=== PATIENT | male | born 1990 | race Two or more races ===

== ENCOUNTER 2016-03-26 10:28 | Inpatient (IN) | payer OTHER ==
[2016-03-26 11:21] VITALS: BMI 23.4
--- NOTE | 2016-03-26 13:02 | HP ---
COWS - Scale Resting Pulse: 1= [place] 81-100 Sweatin=Flushed/Facial Moisture Restless Observation: 3= Extraneous Movement Pupil Size: 2= Moderately Dilated Bone or Joint Aches: 2= Severe Diffuse Aches Runny Nose/ Eye Tearin= Runny Nose/Eyes GI Upset > 30mins: 3= Vomiting/Diarrhea Tremor Observation: 2= Slight Tremor Visible Yawning Observation: 2= >3x During Session Anxiety or Irritability: 2=Irritable/Anxious Goose Flesh Skin: 0=Smooth Skin COWS Score: 21 Admission ROS S - HPI Chief Complaint: I am here to stop using percocet Allergies/Adverse Reactions: Allergies Allergy/AdvReac Type Severity Reaction Status Date / Time No Known Allergies Allergy Verified 03/26/16 11:46 History of Present Illness: this 26 years old male with percocet dependence,withdrawal symptom,last detox in [facility] 11/28/15 to 12/03/15 weight loss nicotine dependence longest sobriety 2 months bipolar disorder - Ebola screening Have you traveled outside of the country in the last 21 days: No (N) Have you had contact with anyone from an Ebola affected area: No Have you been sick,other than usual withdrawal symptoms: No Do you have a fever: No - Review of Systems Constitutional: Chills, Diaphoresis, Loss of Appetite, Malaise, Night Sweats, Changes in sleep, Weakness, Unintentional Wgt. Loss EENT: reports: Tearing, Nose Congestion Respiratory: reports: No Symptoms reported Cardiac: reports: No Symptoms Reported GI: reports: Diarrhea, Nausea, Vomiting, Abdominal cramping : reports: No Symptoms Reported Musculoskeletal: reports: Back Pain, Joint Pain, Muscle Pain, Joint Stiffness Integumentary: reports: Dryness Neuro: reports: Headache, Tremors Endocrine: reports: No Symptoms Reported Hematology: reports: No Symptoms Reported Psychiatric: reports: other (bipolar disorder) Patient History - Patient Medical History Hx Anemia: No Hx Asthma: No Hx Chronic Obstructive Pulmonary Disease (COPD): No Hx Cancer: No Hx Cardiac Disorders: No Hx Congestive Heart Failure: No Hx Hypertension: No Hx Hypercholesterolemia: No Hx Pacemaker: No HX Cerebrovascular Accident: No Hx Seizures: No Hx Dementia: No Hx Diabetes: No Hx Gastrointestinal Disorders: No Hx Liver Disease: No Hx Genitourinary Disorders: No Hx Sexually Transmitted Disorders: No Hx Renal Disease (ESRD): No Hx Thyroid Disease: No Hx Human Immunodeficiency Virus (HIV): No (negative LAST 10/07) Hx Hepatitis C: No Hx Depression: Yes (no med) Hx Suicide Attempt: No Hx Bipolar Disorder: Yes Hx Schizophrenia: No Other Medical History: no suicidal,no homicidal - Patient Surgical History Past Surgical History: No Hx Neurologic Surgery: No Hx Cataract Extraction: No Hx Cardiac Surgery: No Hx Lung Surgery: No Hx Breast Surgery: No Hx Breast Biopsy: No Hx Abdominal Surgery: No Hx Appendectomy: No Hx Cholecystectomy: No Hx Genitourinary Surgery: No Hx Section: No Hx Orthopedic Surgery: No Anesthesia Reaction: No - PPD History Previous Implant?: Yes Implanted On Prior [facility] Admission?: Yes Date: 09/24/15 Results: 0 MM PPD to be Administered?: No - Smoking Cessation Smoking history: Current every day smoker Have you smoked in the past 12 months: Yes Aproximately how many cigarettes per day: 5 Hx Chewing Tobacco Use: No Initiated information on smoking cessation: Yes 'Breaking Loose' booklet given: 03/26/16 - Substance & Tx. History Hx Alcohol Use: No Hx Substance Use: Yes Substance Use Type: Opiates Hx Substance Use Treatment: Yes ([facility] 11/28/15 to 12/03/15) - Substances Abused Oxycontin Route: Oral Frequency: Daily Amount used: 1200mg Age of first use: 18 Date of Last Use: 03/25/16 Family Disease History - Family Disease History Family History: Denies Admission Physical Exam BHS - Vital Signs Vital Signs: Vital Signs - 24 hr 03/26/16 11:19 Temperature 98.7 F Pulse Rate 93 H Respiratory 18 Rate Blood Pressure 124/71 - Physical General Appearance: Yes: Moderate Distress, Tremorous, Irritable, Sweating, Anxious HEENTM: Yes: Nasal Congestion, Rhinorrhea Respiratory: Yes: Lungs Clear Neck: Yes: Within Normal Limits Breast: Yes: Within Normal Limits Cardiology: Yes: Within Normal Limits, Regular Rhythm, Regular Rate, S1, S2 Abdominal: Yes: Within Normal Limits, Normal Bowel Sounds, Non Tender, Soft Genitourinary: Yes: Within Normal Limits Back: Yes: Muscle Spasm Musculoskeletal: Yes: Back pain, Muscle Pain Extremities: Yes: Tremors Neurological: Yes: youth ministry director II-XII NML intact, Fully Oriented, Alert, Motor Strength 5/5 Integumentary: Yes: Dry Lymphatic: Yes: Within Normal Limits - Diagnostic (1) Opioid dependence with withdrawal Current Visit: No Status: Acute (2) Bipolar disorder Current Visit: No Status: Chronic (3) Nicotine dependence Current Visit: No Status: Chronic Qualifiers: Nicotine product type: cigarettes Substance use status: uncomplicated Qualified Code(s): F17.210 - Nicotine dependence, cigarettes, uncomplicated (4) Weight loss Current Visit: Yes Status: Acute Cleared for Admission S - Detox or Rehab [facility] Level of Care: Medically Managed Detox Regimen/Protocol: Methadone S Breath Alcohol Content Breath Alcohol Content: 0 Urine Drug Screen - Results Drug Screen Negative: No Urine Drug Screen Results: TCA-Tricyclic Antidepress, OXY-Oxycodone
[2016-03-26] MEDS ORDERED: MENTHOL/PHENOL 1 EACH UD MM PRN (13:13)
[2016-03-26] MEDS ORDERED: chlordiazePOXIDE HCL 25 MG CAPSULE PO PRN (13:13)
[2016-03-26] MEDS ORDERED: ACETAMINOPHEN 325 MG TABLET (FP) PO PRN (13:13)
[2016-03-26] MEDS ORDERED: LOPERAMIDE HCL 2 MG CAPSULE PO PRN (13:13)
[2016-03-26] MEDS ORDERED: MAGNESIUM CITRATE 300 ML BOTTLE PO PRN (13:13)
[2016-03-26] MEDS ORDERED: IBUPROFEN 400 MG TABLET (FP) PO PRN (13:13)
[2016-03-26] MEDS ORDERED: guaiFENesin/D-METHORPHAN HB 10 ML UNIT-DOSE CUPS PO PRN (13:13)
[2016-03-26] MEDS ORDERED: MAGNESIUM HYDROX 2400MG/30ML ORAL SUSPENSION 30 ML CUP PO PRN (13:13)
[2016-03-26] MEDS ORDERED: P-EPHED 60MG/TRIPROLIDI 2.5MG TABLET PO PRN (13:13)
[2016-03-26] MEDS ORDERED: diphenhydrAMINE HCL 50 MG CAPSULE PO PRN (13:13)
[2016-03-26] MEDS ORDERED: CYCLOBENZAPRINE HCL 10 MG TABLET (FP) PO PRN (13:17)
[2016-03-26] MEDS ORDERED: chlordiazePOXIDE HCL 25 MG CAPSULE PO ONE (13:45)
[2016-03-26] MEDS ORDERED: METHADONE HCL 10 MG TABLET (FOR DETOX USE ONLY) PO ONE ×2 (14:45→23:00)
[2016-03-26] MEDS: diazePAM 5 MG TABLET PO PRN ×2 (14:50→20:13)
[2016-03-26] MEDS ORDERED: chlordiazePOXIDE HCL 25 MG CAPSULE PO SCH (17:00)
[2016-03-26] MEDS: hydrOXYzine PAMOATE 50 MG CAPSULE (FP) PO PRN (18:40)
[2016-03-26] MEDS: cloNIDine HCL 0.1 MG TABLET PO SCH (22:12)
[2016-03-26] MEDS: THIAMINE HCL 100 MG TABLET (FP) PO SCH (22:12)
[2016-03-26 22:52] LABS: URINE APPEARANCE CLEAR; URINE BILIRUBIN NEGATIVE (NEGATIVE); URINE COLOR LTYELLOW; URINE GLUCOSE (UA) NEGATIVE (NEGATIVE); URINE KETONE NEGATIVE (NEGATIVE); URINE LEUK ESTERASE NEGATIVE (NEGATIVE); URINE NITRITE NEGATIVE (NEGATIVE); URINE PROTEIN NEGATIVE (NEGATIVE); URINE UROBILINOGEN NEGATIVE E.U./dl (0.2-1.0)
[2016-03-26 22:58] LABS: URINE BLOOD 1+ (NEGATIVE)
[2016-03-26 23:04] LABS: URINE MUCUS RARE; URINE RBC 2 /hpf (0-3); URINE WBC 3 /hpf (3-5)
[2016-03-27] MEDS: diazePAM 5 MG TABLET PO PRN ×4 (05:30→23:51)
[2016-03-27] MEDS ORDERED: METHADONE HCL 10 MG TABLET (FOR DETOX USE ONLY) PO ONE (10:00)
--- NOTE | 2016-03-27 10:02 | PN ---
BHS COWS - Scale Resting Pulse: 0= [place] 80 or Below Sweatin= Chills/Flushing Restless Observation: 3= Extraneous Movement Pupil Size: 1= Pupils >than Normal Bone or Joint Aches: 2= Severe Diffuse Aches Runny Nose/ Eye Tearin= Runny Nose/Eyes GI Upset > 30mins: 2= Nausea/Diarrhea Tremor Observation of Outstretched Hands: 2= Slight Tremor Visible Yawning Observation: 1= 1-2x During Session Anxiety or Irritability: 2=Irritable/Anxious Goose Flesh Skin: 0=Smooth Skin COWS Score: 16 S Progress Note (SOAP) Subjective: ALERT,IRRITABLE,ANXIOUS,PAIN IN THE BODY AND BACK,TREMOR,INTERRUPTED SLEEP Objective: 03/27/16 10:00 Vital Signs Temperature 97.9 F 03/27/16 06:34 Pulse Rate 96 H 03/27/16 06:34 Respiratory Rate 16 03/27/16 06:34 Blood Pressure 98/70 03/27/16 06:34 O2 Sat by Pulse Oximetry (%) EKG NSR WITH SINUS ARRHYTHMIA NORMAL ECG Laboratory Last Values Urine Color Ltyellow 03/26/16 22:40 Urine Appearance Clear 03/26/16 22:40 Urine pH 7.0 (5.0-8.0) 03/26/16 22:40 Ur Specific [place] 1.017 (1.001-1.035) 03/26/16 22:40 Urine Protein Negative (NEGATIVE) 03/26/16 22:40 Urine Glucose (UA) Negative (NEGATIVE) 03/26/16 22:40 Urine Ketones Negative (NEGATIVE) 03/26/16 22:40 Urine Blood 1+ (NEGATIVE) H 03/26/16 22:40 Urine Nitrite Negative (NEGATIVE) 03/26/16 22:40 Urine Bilirubin Negative (NEGATIVE) 03/26/16 22:40 Urine Urobilinogen Negative E.U./dl (0.2-1.0) 03/26/16 22:40 Ur Leukocyte Esterase Negative (NEGATIVE) 03/26/16 22:40 Urine RBC 2 /hpf (0-3) 03/26/16 22:40 Urine WBC 3 /hpf (3-5) 03/26/16 22:40 Urine Mucus Rare 03/26/16 22:40 LABS PENDING Assessment: 03/27/16 10:01 WITHDRAWAL SYMPTOM Plan: CONTINUE DETOX
[2016-03-27] MEDS: cloNIDine HCL 0.1 MG TABLET PO SCH ×2 (10:11→22:12)
[2016-03-27] MEDS: PRENATAL VITAMINS W/ FOLIC ACID TABLET (FP) PO SCH (10:11)
[2016-03-27 11:01] LABS: MCH 29.7 pg (25.7-33.7); MCHC 33.9 g/dl (32.0-35.9); MEAN CELL VOLUME 87.7 fl (80-96); MEAN PLT VOLUME 8.2 fl (7.5-11.1); PLATELET COUNT 278 K/MM3 (134-434); RDW 13.3 % (11.9-15.9); WHITE BLOOD COUNT 5.9 K/mm3 (4.0-10.0)
[2016-03-27 11:34] LABS: ALBUMIN 4.2 g/dl (3.4-5.0); ALK PHOS 71 U/L (45-117); ANION GAP 8 (8-16); BILIRUBIN,TOTAL 0.4 mg/dL (0.2-1.0); CALCIUM 9.1 mg/dL (8.5-10.1); CO2 27 mmol/L (21-32); CREATININE 0.8 mg/dL (0.7-1.3); GLUCOSE,RANDOM 80 mg/dL (74-106); SGOT/AST 10 U/L (15-37); SGPT/ALT 26 U/L (12-78); TOT PROT 7.5 g/dl (6.4-8.2)
[2016-03-27] MEDS: MAG HYDROX/AL HYDROX/SIMETH 30 ML UNIT-DOSE CUP PO PRN (12:07)
--- NOTE | 2016-03-27 15:04 | CONSULT ---
[facility] Psychiatric Consult - Data Date of interview: 03/27/16 Admission source: [facility] Identifying data: This is one of multiple admissions to [facility] for this 26 y/ o male seeking detox treatment on for opiate dependence.Patient is single without children,domiciled,unemployed and supported on odd jobs. Substance Abuse History: - Smoking Cessation. Smoking history: Current every day smoker. Have you smoked in the past 12 months: Yes. Aproximately how many cigarettes per day: 5. Hx Chewing Tobacco Use: No. Initiated information on smoking cessation: Yes. 'Breaking Loose' booklet given: 03/26/16. - Substance & Tx. History. Hx Alcohol Use: No. Hx Substance Use: Yes. Substance Use Type : Opiates. Hx Substance Use Treatment: Yes ([facility] 11/28/15 to 12/03/15). - Substances Abused. Oxycontin. Route: Oral. Frequency: Daily. Amount used : 1200mg. Age of first use: 18. Date of Last Use: 03/25/16 Medical History: Significant for a history of herniated disks and lower back pain. Psychiatric History: History of one psychiatric hospitalization ([facility] in 03/2015 for depression and suicide attempt) in his lifetime.Diagnosed with Bipolar Disorder.Used to be on depakote 750 mg po bid + wellbutrin 75 mg po bid + ambien 10 mg po hs.No longer under the care of private psychiatrist,Dr Morgan of [facility].Mr Simpson declines to resume this regimen in this hospital course." All I want is a medication that helps me sleeps." Physical/Sexual Abuse/Trauma History: Patient denies. Mental Status Exam - Mental Status Exam Alert and Oriented to: Time, Place, Person Cognitive Function: Good Patient Appearance: Well Groomed Mood: Hopeful, Euthymic Affect: Appropriate, Normal Range Patient Behavior: Talkative, Appropriate, Cooperative Speech Pattern: Clear Voice Loudness: Normal Thought Process: Goal Oriented Hallucinations: Denies Suicidal Ideation: Denies Homicidal Ideation: Denies Insight/Judgement: Poor Sleep: Poorly, Difficulty falling asleep Appetite: Good Muscle strength/Tone: Normal Gait/Station: Normal Psychiatric Findings - Problem List ([place] 1, 2,3) (1) Opioid dependence with withdrawal Current Visit: Yes Status: Acute (2) Nicotine dependence Current Visit: Yes Status: Acute Qualifiers: Nicotine product type: cigarettes Substance use status: uncomplicated Qualified Code(s): F17.210 - Nicotine dependence, cigarettes, uncomplicated (3) Drug-induced mood disorder Current Visit: Yes Status: Acute (4) Substance induced mood disorder Current Visit: Yes Status: Acute (5) Bipolar disorder Current Visit: No Status: Chronic Comment: By history. - Initial Treatment Plan Initial Treatment Plan: Psychoeducation.Detoxification.Patient maintains his decision to abstain from psychotropic medications except for zolpidem (only for hospital course).Made aware of risks of refusal of treatment/benefits of medications.Zolpidem 10 mg po hs prn.Informed of risk of parasomnias.Observation.No scripts at discharge.
[2016-03-27] MEDS ORDERED: chlordiazePOXIDE HCL 25 MG CAPSULE PO SCH (17:00)
[2016-03-27] MEDS: ZOLPIDEM TARTRATE 10 MG TABLET (PARK CARE ONLY) PO PRN (22:12)
[2016-03-27] MEDS: THIAMINE HCL 100 MG TABLET (FP) PO SCH (22:12)
[2016-03-28] MEDS: diazePAM 5 MG TABLET PO PRN ×5 (05:51→22:07)
--- NOTE | 2016-03-28 09:30 | PN ---
BHS COWS - Scale Resting Pulse: 1= [place] 81-100 Sweatin=Flushed/Facial Moisture Restless Observation: 3= Extraneous Movement Pupil Size: 1= Pupils >than Normal Bone or Joint Aches: 2= Severe Diffuse Aches Runny Nose/ Eye Tearin= Runny Nose/Eyes GI Upset > 30mins: 2= Nausea/Diarrhea Tremor Observation of Outstretched Hands: 2= Slight Tremor Visible Yawning Observation: 1= 1-2x During Session Anxiety or Irritability: 2=Irritable/Anxious Goose Flesh Skin: 0=Smooth Skin COWS Score: 18 BHS Progress Note (SOAP) Subjective: ALERT,IRRITABLE,ANXIOUS,INTERRUPTED SLEEP,TREMOR,PAIN IN THE BODY AND BACK Objective: 03/28/16 09:29 Vital Signs Temperature 97.8 F 03/28/16 06:37 Pulse Rate 90 03/28/16 06:37 Respiratory Rate 16 03/28/16 06:37 Blood Pressure 94/66 03/28/16 06:37 O2 Sat by Pulse Oximetry (%) Laboratory Last Values WBC 5.9 K/mm3 (4.0-10.0) 03/27/16 06:30 RBC 4.97 M/mm3 (4.00-5.60) 03/27/16 06:30 Hgb 14.8 GM/dL (11.7-16.9) 03/27/16 06:30 Hct 43.6 % (35.4-49) 03/27/16 06:30 MCV 87.7 fl (80-96) 03/27/16 06:30 MCHC 33.9 g/dl (32.0-35.9) 03/27/16 06:30 RDW 13.3 % (11.9-15.9) 03/27/16 06:30 Plt Count 278 K/MM3 (134-434) D 03/27/16 06:30 MPV 8.2 fl (7.5-11.1) 03/27/16 06:30 Sodium 139 mmol/L (136-145) 03/27/16 06:30 Potassium 4.1 mmol/L (3.5-5.1) 03/27/16 06:30 Chloride 104 mmol/L (98-107) 03/27/16 06:30 Carbon Dioxide 27 mmol/L (21-32) 03/27/16 06:30 Anion Gap 8 (8-16) 03/27/16 06:30 BUN 14 mg/dL (7-18) D 03/27/16 06:30 Creatinine 0.8 mg/dL (0.7-1.3) 03/27/16 06:30 Creat Clearance w eGFR > 60 (>60) 03/27/16 06:30 Random Glucose 80 mg/dL (74-106) 03/27/16 06:30 Calcium 9.1 mg/dL (8.5-10.1) 03/27/16 06:30 Total Bilirubin 0.4 mg/dL (0.2-1.0) 03/27/16 06:30 AST 10 U/L (15-37) L D 03/27/16 06:30 ALT 26 U/L (12-78) D 03/27/16 06:30 Alkaline Phosphatase 71 U/L (45-117) 03/27/16 06:30 Total Protein 7.5 g/dl (6.4-8.2) 03/27/16 06:30 Albumin 4.2 g/dl (3.4-5.0) 03/27/16 06:30 Urine Color Ltyellow 03/26/16 22:40 Urine Appearance Clear 03/26/16 22:40 Urine pH 7.0 (5.0-8.0) 03/26/16 22:40 Ur Specific [place] 1.017 (1.001-1.035) 03/26/16 22:40 Urine Protein Negative (NEGATIVE) 03/26/16 22:40 Urine Glucose (UA) Negative (NEGATIVE) 03/26/16 22:40 Urine Ketones Negative (NEGATIVE) 03/26/16 22:40 Urine Blood 1+ (NEGATIVE) H 03/26/16 22:40 Urine Nitrite Negative (NEGATIVE) 03/26/16 22:40 Urine Bilirubin Negative (NEGATIVE) 03/26/16 22:40 Urine Urobilinogen Negative E.U./dl (0.2-1.0) 03/26/16 22:40 Ur Leukocyte Esterase Negative (NEGATIVE) 03/26/16 22:40 Urine RBC 2 /hpf (0-3) 03/26/16 22:40 Urine WBC 3 /hpf (3-5) 03/26/16 22:40 Urine Mucus Rare 03/26/16 22:40 RPR Titer Nonreactive (NONREACTIVE) 03/27/16 06:30 Assessment: 03/28/16 09:30 WITHDRAWAL SYMPTOM Plan: CONTINUE DETOX
[2016-03-28] MEDS ORDERED: METHADONE HCL 5 MG TABLET (FOR DETOX USE ONLY) PO ONE (10:00)
[2016-03-28] MEDS: PRENATAL VITAMINS W/ FOLIC ACID TABLET (FP) PO SCH (10:08)
[2016-03-28] MEDS: cloNIDine HCL 0.1 MG TABLET PO SCH ×2 (10:09→22:06)
[2016-03-28] MEDS: MAG HYDROX/AL HYDROX/SIMETH 30 ML UNIT-DOSE CUP PO PRN ×2 (14:15→22:32)
[2016-03-28] MEDS ORDERED: chlordiazePOXIDE 5 MG CAPSULE PO SCH (17:00)
[2016-03-28] MEDS: THIAMINE HCL 100 MG TABLET (FP) PO SCH (22:06)
[2016-03-28] MEDS: ZOLPIDEM TARTRATE 10 MG TABLET (PARK CARE ONLY) PO PRN (22:08)
[2016-03-29] MEDS: diazePAM 5 MG TABLET PO PRN ×2 (06:05→10:06)
--- NOTE | 2016-03-29 09:24 | PN ---
BHS Progress Note (SOAP) Subjective: ALERT,IRRITABLE,ANXIOUS,PAIN IN THE BODY,HISTORY OF GERD STATED USE TO TAKE NEXIUM Objective: 03/29/16 09:23 Vital Signs Temperature 98.7 F 03/29/16 06:24 Pulse Rate 82 03/29/16 06:24 Respiratory Rate 16 03/29/16 06:24 Blood Pressure 106/68 03/29/16 06:24 O2 Sat by Pulse Oximetry (%) Assessment: 03/29/16 09:23 WITHDRAWAL SYMPTOM Plan: CONTINUE DETOX,PROTONIX 40 MGS PO DAILY
[2016-03-29] MEDS ORDERED: METHADONE HCL 5 MG TABLET (FOR DETOX USE ONLY) PO ONE (10:00)
[2016-03-29] MEDS: cloNIDine HCL 0.1 MG TABLET PO SCH ×2 (10:06→22:14)
[2016-03-29] MEDS: PANTOPRAZOLE 40 MG TABLET (FP) PO SCH (10:06)
[2016-03-29] MEDS: PRENATAL VITAMINS W/ FOLIC ACID TABLET (FP) PO SCH (10:06)
[2016-03-29] MEDS ORDERED: chlordiazePOXIDE HCL 10 MG CAPSULE PO SCH (17:00)
[2016-03-29] MEDS: hydrOXYzine PAMOATE 50 MG CAPSULE (FP) PO PRN (20:48)
[2016-03-29] MEDS: THIAMINE HCL 100 MG TABLET (FP) PO SCH (22:14)
[2016-03-29] MEDS: ZOLPIDEM TARTRATE 10 MG TABLET (PARK CARE ONLY) PO PRN (22:14)
[2016-03-30] MEDS: hydrOXYzine PAMOATE 50 MG CAPSULE (FP) PO PRN ×2 (06:05→20:02)
--- NOTE | 2016-03-30 09:42 | PN ---
BHS Progress Note (SOAP) Subjective: alert,irritable,anxious,interrupted sleep,aching pain Objective: 03/30/16 09:40 Vital Signs Temperature 97.1 F L 03/30/16 09:40 Pulse Rate 85 03/30/16 09:40 Respiratory Rate 18 03/30/16 09:40 Blood Pressure 123/71 03/30/16 09:40 O2 Sat by Pulse Oximetry (%) 03/30/16 09:41 withdrawal symptom Assessment: 03/30/16 09:41 withdrawal symptom Plan: continue detox,discharge in am
[2016-03-30] MEDS ORDERED: METHADONE HCL 10 MG TABLET (FOR DETOX USE ONLY) PO ONE (10:00)
[2016-03-30] MEDS: PRENATAL VITAMINS W/ FOLIC ACID TABLET (FP) PO SCH (10:10)
[2016-03-30] MEDS: PANTOPRAZOLE 40 MG TABLET (FP) PO SCH (10:10)
[2016-03-30] MEDS: cloNIDine HCL 0.1 MG TABLET PO SCH ×2 (10:10→22:09)
[2016-03-30] MEDS: THIAMINE HCL 100 MG TABLET (FP) PO SCH (22:09)
[2016-03-30] MEDS ORDERED: ZOLPIDEM TARTRATE 10 MG TABLET (PARK CARE ONLY) PO ONE (22:45)
[2016-03-31] MEDS ORDERED: METHADONE HCL 5 MG TABLET (FOR DETOX USE ONLY) PO ONE (06:00)
[2016-03-31 06:22] VITALS: BP 102/70; PULSE 91; TEMP 98.5
--- NOTE | 2016-03-31 10:37 | DS ---
[facility] Detox Discharge Summary Admission Date: 03/26/16 Discharge Date: 03/31/16 - History Present History: Opioid Dependence, Sedative Dependence Pertinent Past History: denies - Physical Exam Results Vital Signs: Vital Signs Temperature 98.5 F 03/31/16 06:21 Pulse Rate 91 H 03/31/16 06:21 Respiratory Rate 18 03/31/16 06:21 Blood Pressure 102/70 03/31/16 06:21 O2 Sat by Pulse Oximetry (%) Laboratory Last Values WBC 5.9 K/mm3 (4.0-10.0) 03/27/16 06:30 RBC 4.97 M/mm3 (4.00-5.60) 03/27/16 06:30 Hgb 14.8 GM/dL (11.7-16.9) 03/27/16 06:30 Hct 43.6 % (35.4-49) 03/27/16 06:30 MCV 87.7 fl (80-96) 03/27/16 06:30 MCHC 33.9 g/dl (32.0-35.9) 03/27/16 06:30 RDW 13.3 % (11.9-15.9) 03/27/16 06:30 Plt Count 278 K/MM3 (134-434) D 03/27/16 06:30 MPV 8.2 fl (7.5-11.1) 03/27/16 06:30 Sodium 139 mmol/L (136-145) 03/27/16 06:30 Potassium 4.1 mmol/L (3.5-5.1) 03/27/16 06:30 Chloride 104 mmol/L (98-107) 03/27/16 06:30 Carbon Dioxide 27 mmol/L (21-32) 03/27/16 06:30 Anion Gap 8 (8-16) 03/27/16 06:30 BUN 14 mg/dL (7-18) D 03/27/16 06:30 Creatinine 0.8 mg/dL (0.7-1.3) 03/27/16 06:30 Creat Clearance w eGFR > 60 (>60) 03/27/16 06:30 Random Glucose 80 mg/dL (74-106) 03/27/16 06:30 Calcium 9.1 mg/dL (8.5-10.1) 03/27/16 06:30 Total Bilirubin 0.4 mg/dL (0.2-1.0) 03/27/16 06:30 AST 10 U/L (15-37) L D 03/27/16 06:30 ALT 26 U/L (12-78) D 03/27/16 06:30 Alkaline Phosphatase 71 U/L (45-117) 03/27/16 06:30 Total Protein 7.5 g/dl (6.4-8.2) 03/27/16 06:30 Albumin 4.2 g/dl (3.4-5.0) 03/27/16 06:30 Urine Color Ltyellow 03/26/16 22:40 Urine Appearance Clear 03/26/16 22:40 Urine pH 7.0 (5.0-8.0) 03/26/16 22:40 Ur Specific [place] 1.017 (1.001-1.035) 03/26/16 22:40 Urine Protein Negative (NEGATIVE) 03/26/16 22:40 Urine Glucose (UA) Negative (NEGATIVE) 03/26/16 22:40 Urine Ketones Negative (NEGATIVE) 03/26/16 22:40 Urine Blood 1+ (NEGATIVE) H 03/26/16 22:40 Urine Nitrite Negative (NEGATIVE) 03/26/16 22:40 Urine Bilirubin Negative (NEGATIVE) 03/26/16 22:40 Urine Urobilinogen Negative E.U./dl (0.2-1.0) 03/26/16 22:40 Ur Leukocyte Esterase Negative (NEGATIVE) 03/26/16 22:40 Urine RBC 2 /hpf (0-3) 03/26/16 22:40 Urine WBC 3 /hpf (3-5) 03/26/16 22:40 Urine Mucus Rare 03/26/16 22:40 RPR Titer Nonreactive (NONREACTIVE) 03/27/16 06:30 labs noted Pertinent Admission Physical Exam Findings: withdrawal symptoms - Treatment Hospital Course: Detox Protocol Followed, Detoxed Safely, Responded well, Discharged Condition Good, Rehab Referral Accepted - Medication Discharge Medications: Ambulatory Orders NK [No Known Home Medication] 03/26/16 - Diagnosis (1) Drug-induced mood disorder Status: Acute (2) Nicotine dependence Status: Acute Qualifiers: Nicotine product type: cigarettes Substance use status: uncomplicated Qualified Code(s): F17.210 - Nicotine dependence, cigarettes, uncomplicated (3) Opioid dependence with withdrawal Status: Acute (4) Substance induced mood disorder Status: Acute (5) Uncomplicated sedative, hypnotic, or anxiolytic withdrawal Status: Acute (6) Bipolar disorder Status: Chronic - AMA Did Patient Leave Against Medical Advice: No
== END 2016-03-31 08:58 | disposition home or self-care (01) | DRG 897 ==
LOC: YASAS 10:28 → Y3N 12:16
PROVIDERS: ADMIT Internal Medicine; ATTEND Internal Medicine
PROC: HZ2ZZZZ Detoxification Services for Substance Abuse Treatment (ICD-10-PCS; principal; 2016-03-26)
DX: F11.23 Opioid dependence with withdrawal (principal); L49.9 Exfoliation due to erythematous condition involving 90 or more percent of body surface; F17.210 Nicotine dependence, cigarettes, uncomplicated; F19.24 Other psychoactive substance dependence with psychoactive substance-induced mood disorder; F31.9 Bipolar disorder, unspecified; Z87.898 Personal history of other specified conditions
CPT/HCPCS: 36415; 80053; 81003; 81015; 85027; 86593; 93005; 93010

== ENCOUNTER 2016-12-29 11:45 | Inpatient (IN) | payer OTHER ==
[2016-12-29 12:45] VITALS: BMI 22.1
--- NOTE | 2016-12-29 13:46 | HP ---
COWS - Scale Resting Pulse: 0= [place] 80 or Below Sweatin= Chills/Flushing Restless Observation: 1= Difficult to Sit Still Pupil Size: 0= Normal to Room Light Bone or Joint Aches: 2= Severe Diffuse Aches Runny Nose/ Eye Tearin= Nasal Congestion GI Upset > 30mins: 1= Stomach Cramp Tremor Observation: 1= Tremor [place], Not Seen Yawning Observation: 1= 1-2x During Session Anxiety or Irritability: 1=Feels Anxious/Irritable Goose Flesh Skin: 0=Smooth Skin COWS Score: 9 CIWA Score - CIWA Score Nausea/Vomitin-Mild Nausea/No Vomiting Muscle Tremors: 4-Moderate,w/Arms Extend Anxiety: 4-Mod. Anxious/Guarded Agitation: 1-Slight > Activity Paroxysmal Sweats: 1-Minimal Palms Moist Orientation: 0-Oriented Tacttile Disturbances: 1-Very Mild Itch/Numbness Auditory Disturbances: 1-Very Mild Visual Disturbances: 1-Very Mild Sensitivity Headache: 1-Very Mild CIWA-Ar Total Score: 15 Admission ROS S - HPI Chief Complaint: I need to work and I have to stop using - I have a real problem Allergies/Adverse Reactions: Allergies Allergy/AdvReac Type Severity Reaction Status Date / Time No Known Allergies Allergy Verified 12/29/16 15:00 History of Present Illness: 26 yo gentleman here for detox from percocet, alcohol. No seizures. Previously here in detox in March - did well about 2 months then relapsed. Noted YOON was getting percocet for pain management - states it was for workman's compensation. Exam Limitations: Clinical Condition - Ebola screening Have you traveled outside of the country in the last 21 days: No Have you had contact with anyone from an Ebola affected area: No Have you been sick,other than usual withdrawal symptoms: No Do you have a fever: No - Review of Systems Constitutional: Loss of Appetite, Malaise, Changes in sleep, Weakness EENT: reports: Nose Congestion Respiratory: reports: No Symptoms reported Cardiac: reports: No Symptoms Reported GI: reports: Nausea, Poor Appetite : reports: No Symptoms Reported Musculoskeletal: reports: Back Pain, Muscle Pain Integumentary: reports: No Symptoms Reported Neuro: reports: Headache Endocrine: reports: No Symptoms Reported Hematology: reports: No Symptoms Reported Psychiatric: reports: Judgement Intact, Mood/Affect Appropiate, Orientated x3, Anxious Other Systems: Reviewed and Negative Patient History - Patient Medical History Hx Anemia: No Hx Asthma: No Hx Chronic Obstructive Pulmonary Disease (COPD): No Hx Cancer: No Hx Cardiac Disorders: No Hx Congestive Heart Failure: No Hx Hypertension: No Hx Hypercholesterolemia: No Hx Pacemaker: No HX Cerebrovascular Accident: No Hx Seizures: No Hx Dementia: No Hx Diabetes: No Hx Gastrointestinal Disorders: No Hx Liver Disease: No Hx Genitourinary Disorders: No Hx Sexually Transmitted Disorders: No Hx Renal Disease (ESRD): No Hx Thyroid Disease: No Hx Human Immunodeficiency Virus (HIV): No (negative LAST 10/07) Hx Hepatitis C: No Hx Depression: Yes (no med) Hx Suicide Attempt: No Hx Bipolar Disorder: Yes Hx Schizophrenia: No - Patient Surgical History Past Surgical History: No Hx Neurologic Surgery: No Hx Cataract Extraction: No Hx Cardiac Surgery: No Hx Lung Surgery: No Hx Breast Surgery: No Hx Breast Biopsy: No Hx Abdominal Surgery: No Hx Appendectomy: No Hx Cholecystectomy: No Hx Genitourinary Surgery: No Hx Section: No Hx Orthopedic Surgery: No Anesthesia Reaction: No - PPD History Previous Implant?: Yes Documented Results: Positive w/proof Date: 09/24/15 Results: 0 MM PPD to be Administered?: Yes - Reproductive History Patient is a Female of Child Bearing Age (11 -55 yrs old): No (male) - Smoking Cessation Smoking history: Current every day smoker Have you smoked in the past 12 months: Yes Aproximately how many cigarettes per day: 5 Hx Chewing Tobacco Use: No Initiated information on smoking cessation: Yes 'Breaking Loose' booklet given: 12/29/16 (give on floor) - Substance & Tx. History Hx Alcohol Use: Yes Hx Substance Use: Yes Substance Use Type: Alcohol, Opiates Hx Substance Use Treatment: Yes (detox) - Substances Abused Alcohol Route: Oral Frequency: Daily Amount used: two six packs 16 oz beer Age of first use: 18 Date of Last Use: 12/28/16 percocet Route: Oral Frequency: Daily Amount used: thirty pills twice daily Age of first use: 19 Date of Last Use: 12/28/16 Benzodiazepine (Klonopin) Route: Oral Frequency: 1-2 times per week Amount used: 1mg Age of first use: 25 Date of Last Use: 12/28/16 Marijuana/Hashish Route: Smoking Frequency: 1-3 times last 30 days Amount used: 1 joint Age of first use: 16 Date of Last Use: 12/28/16 Family Disease History - Family Disease History Family Disease History: Other: Father (living - healthy -etoh), Mother (living - healthy), Brother (one - [place]; four living - healthy), Sister (two living- healthy) Admission Physical Exam [facility] - Vital Signs Vital Signs: Vital Signs - 24 hr 12/29/16 12:44 Temperature 96.4 F L Pulse Rate 76 Respiratory 20 Rate Blood Pressure 104/68 - Physical General Appearance: Yes: Nourished, Appropriately Dressed, Mild Distress HEENTM: Yes: Hearing grossly Normal, Normocephalic, Normal Voice, Pharynx Normal Respiratory: Yes: Normal Breath Sounds, No Respiratory Distress Neck: Yes: No masses,lesions,Nodules Breast: Yes: Breast Exam Deferred Cardiology: Yes: Regular Rhythm, Regular Rate Abdominal: Yes: Soft Genitourinary: Yes: Within Normal Limits Back: Yes: Normal Inspection Musculoskeletal: Yes: full range of Motion, Gait Steady Extremities: Yes: Normal Inspection, Non-Tender Neurological: Yes: Fully Oriented, Alert, Normal Mood/Affect, Normal Response Integumentary: Yes: Normal Color, Warm Lymphatic: Yes: Within Normal Limits - Diagnostic (1) Opioid dependence with withdrawal Current Visit: Yes Status: Chronic (2) EtOH dependence Current Visit: Yes Status: Chronic Qualifiers: Substance use status: in withdrawal Complication of substance-induced condition: uncomplicated Qualified Code(s): F10.230 - Alcohol dependence with withdrawal, uncomplicated; F10.230 - Alcohol dependence with withdrawal, uncomplicated; F10.230 - Alcohol dependence with withdrawal, uncomplicated (3) Back pain due to injury Current Visit: Yes Status: Chronic (4) Nicotine dependence Current Visit: Yes Status: Chronic Qualifiers: Nicotine product type: cigarettes Substance use status: uncomplicated Qualified Code(s): F17.210 - Nicotine dependence, cigarettes, uncomplicated; F17.210 - Nicotine dependence, cigarettes, uncomplicated (5) Uncomplicated sedative, hypnotic, or anxiolytic withdrawal Current Visit: Yes Status: Chronic Cleared for Admission [facility] - Detox or Rehab [facility] Level of Care: Medically Managed Detox Regimen/Protocol: Methadone/Librium S Breath Alcohol Content Breath Alcohol Content: 0 Urine Drug Screen - Results Drug Screen Negative: No Urine Drug Screen Results: THC-Marijuana, BZO-Benzodiazepines, TCA-Tricyclic Antidepress, OXY-Oxycodone
[2016-12-29] MEDS ORDERED: MAGNESIUM CITRATE 300 ML BOTTLE PO PRN (13:52)
[2016-12-29] MEDS ORDERED: ACETAMINOPHEN 325 MG TABLET (FP) PO PRN (13:52)
[2016-12-29] MEDS ORDERED: P-EPHED 60MG/TRIPROLIDI 2.5MG TABLET PO PRN (13:52)
[2016-12-29] MEDS ORDERED: LOPERAMIDE HCL 2 MG CAPSULE PO PRN (13:52)
[2016-12-29] MEDS ORDERED: NICOTINE POLACRILEX 2 MG GUM BUC PRN (13:52)
[2016-12-29] MEDS ORDERED: chlordiazePOXIDE HCL 25 MG CAPSULE PO PRN (13:52)
[2016-12-29] MEDS ORDERED: hydrOXYzine PAMOATE 50 MG CAPSULE (FP) PO PRN (13:52)
[2016-12-29] MEDS ORDERED: MENTHOL/PHENOL 1 EACH UD MM PRN (13:52)
[2016-12-29] MEDS ORDERED: MAGNESIUM HYDROX 2400MG/30ML ORAL SUSPENSION 30 ML CUP PO PRN (13:52)
[2016-12-29] MEDS ORDERED: METHADONE HCL 10 MG TABLET (FOR DETOX USE ONLY) PO ONE ×2 (15:15→23:00)
[2016-12-29] MEDS ORDERED: chlordiazePOXIDE HCL 25 MG CAPSULE PO ONE (15:15)
[2016-12-29 18:13] LABS: URINE APPEARANCE SLCLOUDY; URINE BILIRUBIN NEGATIVE (NEGATIVE); URINE BLOOD NEGATIVE (NEGATIVE); URINE COLOR YELLOW; URINE GLUCOSE (UA) NEGATIVE (NEGATIVE); URINE KETONE NEGATIVE (NEGATIVE); URINE NITRITE NEGATIVE (NEGATIVE); URINE PROTEIN NEGATIVE (NEGATIVE); URINE UROBILINOGEN NEGATIVE mg/dL (0.2-1.0)
[2016-12-29] MEDS: chlordiazePOXIDE HCL 25 MG CAPSULE PO SCH ×2 (19:47→22:58)
[2016-12-29] MEDS: guaiFENesin/D-METHORPHAN HB 10 ML UNIT-DOSE CUPS PO PRN (20:27)
[2016-12-29 22:38] LABS: URINE LEUK ESTERASE Negative (NEGATIVE)
[2016-12-29] MEDS: diphenhydrAMINE HCL 50 MG CAPSULE PO PRN (22:58)
[2016-12-29] MEDS: THIAMINE HCL 100 MG TABLET (FP) PO SCH (22:58)
[2016-12-29] MEDS: MAG HYDROX/AL HYDROX/SIMETH 30 ML UNIT-DOSE CUP PO PRN (22:59)
[2016-12-30] MEDS: chlordiazePOXIDE HCL 25 MG CAPSULE PO SCH ×2 (05:51→10:44)
--- NOTE | 2016-12-30 08:58 | CONSULT ---
[facility] Psychiatric Consult - Data Date of interview: 12/30/16 Admission source: Self-referred Identifying data: Mr Simpson is a 26 years old single male, employed in construction, living with family Substance Abuse History: Reports history of alcohol, percocet, klonopin and marijuana use. See medical and counselor's note for further information Medical History: Unremarkable. Smokes 5 cigarettes daily Psychiatric History: Reports that his first psychiatric contact was at age 19 when he saw a psychiatrist in the [facility] for "being crazy, depressed". He was diagnosed with Bipolar Disorder and started on Abilify. Reports one previous psychiatric admission in March 2014 to [facility] for trying to hang himself. He was treated with Depakote, Wellbutrin and Ambien. He was dicharged on those medications and referred back to Dr Morgan, a private psychiatrist in [place], [place]. He stopped seeing Dr Phelps a year ago because of medical insurance coverage issue. He has been off medication since. At present, reports feeling depressed, anxious and sleeping poorly. Denies suicidal. homicidal ideations Physical/Sexual Abuse/Trauma History: Denies history of verbal, physical or sexual abuse as well as DV relationship Additional Comment: Reports history of 7 previous arrests. 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 Reports having a active court case Mental Status Exam - Mental Status Exam Alert and Oriented to: Time, Place, Person Cognitive Function: Fair Patient Appearance: Well Groomed Mood: Depressed, Anxious Affect: Appropriate Patient Behavior: Cooperative Speech Pattern: Clear Voice Loudness: Normal Thought Process: Intact, Goal Oriented Thought Disorder: Not Present Hallucinations: Denies Suicidal Ideation: Denies Homicidal Ideation: Denies Insight/Judgement: Poor Sleep: Poorly Appetite: Fair Muscle strength/Tone: Normal, Rigidity Gait/Station: Other Psychiatric Findings - Problem List ([place] 1, 2,3) (1) Bipolar disorder Current Visit: No Status: Chronic Comment: By history. (2) Alcohol dependence with uncomplicated withdrawal Current Visit: Yes Status: Acute (3) Opioid dependence with withdrawal Current Visit: Yes Status: Chronic (4) Uncomplicated sedative, hypnotic, or anxiolytic withdrawal Current Visit: Yes Status: Chronic (5) Nicotine dependence Current Visit: Yes Status: Chronic Qualifiers: Nicotine product type: cigarettes Substance use status: uncomplicated Qualified Code(s): F17.210 - Nicotine dependence, cigarettes, uncomplicated; F17.210 - Nicotine dependence, cigarettes, uncomplicated (6) Back pain due to injury Current Visit: Yes Status: Chronic (7) Substance induced mood disorder Current Visit: No Status: Acute - Initial Treatment Plan Initial Treatment Plan: 1) Start Ambien 10 mg po HS prn for insomnia. 2) Continue inpatient detoxification
[2016-12-30] MEDS ORDERED: ZOLPIDEM TARTRATE 5 MG TABLET PO PRN (09:30)
[2016-12-30] MEDS ORDERED: METHADONE HCL 10 MG TABLET (FOR DETOX USE ONLY) PO SCH (10:00)
[2016-12-30 10:18] LABS: MCH 30.7 pg (25.7-33.7); MCHC 33.2 g/dl (32.0-35.9); MEAN CELL VOLUME 92.5 fl (80-96); MEAN PLT VOLUME 8.5 fl (7.5-11.1); PLATELET COUNT 285 K/MM3 (134-434); RDW 12.9 % (11.9-15.9); WHITE BLOOD COUNT 6.4 K/mm3 (4.0-10.0)
[2016-12-30 10:22] LABS: ALBUMIN 3.8 g/dl (3.4-5.0); CALCIUM 9.2 mg/dL (8.5-10.1); GLUCOSE,RANDOM 77 mg/dL (74-106)
[2016-12-30 10:28] LABS: ALK PHOS 68 U/L (45-117); ANION GAP 7 (8-16); BILIRUBIN,TOTAL 0.6 mg/dL (0.2-1.0); CO2 30 mmol/L (21-32); CREATININE 0.8 mg/dL (0.7-1.3); SGOT/AST 13 U/L (15-37); SGPT/ALT 24 U/L (12-78); TOT PROT 7.3 g/dl (6.4-8.2)
[2016-12-30] MEDS: PRENATAL VITAMINS W/ FOLIC ACID TABLET (FP) PO SCH (10:43)
--- NOTE | 2016-12-30 12:13 | PN ---
[facility] CIWA - CIWA Score Nausea/Vomitin-No Nausea/No Vomiting Muscle Tremors: 4-Moderate,w/Arms Extend Anxiety: 4-Mod. Anxious/Guarded Agitation: 3 Paroxysmal Sweats: 3 Orientation: 0-Oriented Tacttile Disturbances: 0-None Auditory Disturbances: 0-None Visual Disturbances: 0-None Headache: 0-None Present CIWA-Ar Total Score: 14 S COWS - Scale Resting Pulse: 0= [place] 80 or Below Sweatin=Flushed/Facial Moisture Restless Observation: 1= Difficult to Sit Still Pupil Size: 0= Normal to Room Light Bone or Joint Aches: 1= Mild Discomfort Runny Nose/ Eye Tearin= Runny Nose/Eyes GI Upset > 30mins: 2= Nausea/Diarrhea Tremor Observation of Outstretched Hands: 2= Slight Tremor Visible Yawning Observation: 1= 1-2x During Session Anxiety or Irritability: 2=Irritable/Anxious Goose Flesh Skin: 0=Smooth Skin COWS Score: 13 [facility] Progress Note (SOAP) Subjective: Muscle aches/spasm,anxiety,tremors,sweating,interrupted sleep,restless Objective: 12/30/16 12:12 Vital Signs - 8 hr 12/30/16 12/30/16 05:00 09:23 Temperature 97.3 F L 97.1 F L Pulse Rate 70 73 Respiratory 18 18 Rate Blood Pressure 100/60 102/76 Laboratory Last Values WBC 6.4 K/mm3 (4.0-10.0) 12/30/16 07:40 RBC 4.58 M/mm3 (4.00-5.60) 12/30/16 07:40 Hgb 14.1 GM/dL (11.7-16.9) 12/30/16 07:40 Hct 42.3 % (35.4-49) 12/30/16 07:40 MCV 92.5 fl (80-96) 12/30/16 07:40 MCH 30.7 pg (25.7-33.7) 12/30/16 07:40 MCHC 33.2 g/dl (32.0-35.9) 12/30/16 07:40 RDW 12.9 % (11.9-15.9) 12/30/16 07:40 Plt Count 285 K/MM3 (134-434) 12/30/16 07:40 MPV 8.5 fl (7.5-11.1) 12/30/16 07:40 Sodium 140 mmol/L (136-145) 12/30/16 07:40 Potassium 4.5 mmol/L (3.5-5.1) 12/30/16 07:40 Chloride 103 mmol/L (98-107) 12/30/16 07:40 Carbon Dioxide 30 mmol/L (21-32) 12/30/16 07:40 Anion Gap 7 (8-16) L 12/30/16 07:40 BUN 12 mg/dL (7-18) 12/30/16 07:40 Creatinine 0.8 mg/dL (0.7-1.3) 12/30/16 07:40 Creat Clearance w eGFR > 60 (>60) 12/30/16 07:40 Random Glucose 77 mg/dL (74-106) 12/30/16 07:40 Calcium 9.2 mg/dL (8.5-10.1) 12/30/16 07:40 Total Bilirubin 0.6 mg/dL (0.2-1.0) D 12/30/16 07:40 AST 13 U/L (15-37) L D 12/30/16 07:40 ALT 24 U/L (12-78) 12/30/16 07:40 Alkaline Phosphatase 68 U/L (45-117) 12/30/16 07:40 Total Protein 7.3 g/dl (6.4-8.2) 12/30/16 07:40 Albumin 3.8 g/dl (3.4-5.0) 12/30/16 07:40 Urine Color Yellow 12/29/16 15:37 Urine Appearance Slcloudy 12/29/16 15:37 Urine pH 5.0 (5.0-8.0) D 12/29/16 15:37 Ur Specific [place] 1.025 (1.005-1.025) 12/29/16 15:37 Urine Protein Negative (NEGATIVE) 12/29/16 15:37 Urine Glucose (UA) Negative (NEGATIVE) 12/29/16 15:37 Urine Ketones Negative (NEGATIVE) 12/29/16 15:37 Urine Blood Negative (NEGATIVE) 12/29/16 15:37 Urine Nitrite Negative (NEGATIVE) 12/29/16 15:37 Urine Bilirubin Negative (NEGATIVE) 12/29/16 15:37 Urine Urobilinogen Negative mg/dL (0.2-1.0) 12/29/16 15:37 Ur Leukocyte Esterase Negative (NEGATIVE) 12/29/16 15:37 RPR Titer Nonreactive (NONREACTIVE) 12/30/16 07:40 labs noted Assessment: 12/30/16 12:12 Withdrawal sx. Plan: Continue detox
[2016-12-30] MEDS ORDERED: diazePAM 5 MG TABLET PO ONE (12:45)
[2016-12-30] MEDS: NICOTINE 21 MG/24 HOURS TOPICAL PATCH TD SCH (13:16)
[2016-12-30] MEDS: diazePAM 5 MG TABLET PO SCH ×2 (15:34→22:29)
--- NOTE | 2016-12-30 16:37 | EKG ---
Test Reason : Blood Pressure : / mmHG Vent. Rate : 061 BPM Atrial Rate : 061 BPM P-R Int : 150 ms QRS Dur : 092 ms QT Int : 400 ms P-R-T Axes : 049 056 058 degrees QTc Int : 402 ms NORMAL SINUS RHYTHM WITH SINUS ARRHYTHMIA EARLY REPOLARIZATION NO PREVIOUS ECGS AVAILABLE CLINICAL CORRELATION IS RECOMMENDED Confirmed by SWATHI DUMONT MD ([id number]) on 12/30/2016 4:37:22 PM Referred By: Confirmed By:SWATHI DUMONT MD
[2016-12-30] MEDS ORDERED: chlordiazePOXIDE HCL 25 MG CAPSULE PO SCH (17:00)
[2016-12-30] MEDS: IBUPROFEN 400 MG TABLET (FP) PO PRN (18:31)
[2016-12-30] MEDS: diazePAM 5 MG TABLET PO PRN (18:32)
[2016-12-30] MEDS: THIAMINE HCL 100 MG TABLET (FP) PO SCH (22:29)
[2016-12-30] MEDS: ZOLPIDEM TARTRATE 5 MG TABLET PO PRN (22:30)
[2016-12-30] MEDS: diphenhydrAMINE HCL 50 MG CAPSULE PO PRN (23:55)
[2016-12-31] MEDS: diazePAM 5 MG TABLET PO SCH ×3 (06:02→22:17)
[2016-12-31] MEDS: PRENATAL VITAMINS W/ FOLIC ACID TABLET (FP) PO SCH (10:27)
[2016-12-31] MEDS: diazePAM 5 MG TABLET PO PRN ×2 (10:27→19:27)
[2016-12-31] MEDS: METHADONE HCL 5 MG TABLET (FOR DETOX USE ONLY) PO SCH (10:27)
[2016-12-31] MEDS: NICOTINE 21 MG/24 HOURS TOPICAL PATCH TD SCH (10:29)
[2016-12-31] MEDS: MAG HYDROX/AL HYDROX/SIMETH 30 ML UNIT-DOSE CUP PO PRN (11:20)
--- NOTE | 2016-12-31 13:32 | PN ---
[facility] CIWA - CIWA Score Nausea/Vomitin Muscle Tremors: 4-Moderate,w/Arms Extend Anxiety: 4-Mod. Anxious/Guarded Agitation: 4-Moderately Restless Paroxysmal Sweats: 3 Orientation: 0-Oriented Tacttile Disturbances: 0-None Auditory Disturbances: 0-None Visual Disturbances: 0-None Headache: 0-None Present CIWA-Ar Total Score: 18 [facility] COWS - Scale Resting Pulse: 0= [place] 80 or Below Sweatin= Chills/Flushing Restless Observation: 1= Difficult to Sit Still Pupil Size: 1= Pupils >than Normal Bone or Joint Aches: 1= Mild Discomfort Runny Nose/ Eye Tearin= Nasal Congestion GI Upset > 30mins: 2= Nausea/Diarrhea Tremor Observation of Outstretched Hands: 2= Slight Tremor Visible Yawning Observation: 1= 1-2x During Session Anxiety or Irritability: 2=Irritable/Anxious Goose Flesh Skin: 3=Piloerection COWS Score: 15 [facility] Progress Note (SOAP) Subjective: nausea, sweats, interrupted sleep, anxiety, tremors Objective: 12/31/16 13:31 Vital Signs - 8 hr 12/31/16 12/31/16 06:23 10:38 Temperature 96.7 F L 96.0 F L Pulse Rate 68 68 Respiratory 18 18 Rate Blood Pressure 108/69 105/75 Laboratory Tests 12/29/16 12/30/16 12/30/16 15:37 07:40 07:40 WBC 6.4 RBC 4.58 Hgb 14.1 Hct 42.3 MCV 92.5 MCH 30.7 MCHC 33.2 RDW 12.9 Plt Count 285 MPV 8.5 Sodium 140 Potassium 4.5 Chloride 103 Carbon Dioxide 30 Anion Gap 7 L BUN 12 Creatinine 0.8 Creat Clearance w eGFR > 60 Random Glucose 77 Calcium 9.2 Total Bilirubin 0.6 D AST 13 L D ALT 24 Alkaline Phosphatase 68 Total Protein 7.3 Albumin 3.8 Urine Color Yellow Urine Appearance Slcloudy Urine pH 5.0 D Ur Specific [place] 1.025 Urine Protein Negative Urine Glucose (UA) Negative Urine Ketones Negative Urine Blood Negative Urine Nitrite Negative Urine Bilirubin Negative Urine Urobilinogen Negative Ur Leukocyte Esterase Negative RPR Titer 12/30/16 07:40 WBC RBC Hgb Hct MCV MCH MCHC RDW Plt Count MPV Sodium Potassium Chloride Carbon Dioxide Anion Gap BUN Creatinine Creat Clearance w eGFR Random Glucose Calcium Total Bilirubin AST ALT Alkaline Phosphatase Total Protein Albumin Urine Color Urine Appearance Urine pH Ur Specific [place] Urine Protein Urine Glucose (UA) Urine Ketones Urine Blood Urine Nitrite Urine Bilirubin Urine Urobilinogen Ur Leukocyte Esterase RPR Titer Nonreactive Assessment: 12/31/16 13:32 withdrawal sx Plan: cont detox, encourage ambulation
[2016-12-31] MEDS ORDERED: chlordiazePOXIDE 5 MG CAPSULE PO SCH (17:00)
[2016-12-31] MEDS: IBUPROFEN 400 MG TABLET (FP) PO PRN (21:09)
[2016-12-31] MEDS: THIAMINE HCL 100 MG TABLET (FP) PO SCH (22:17)
[2016-12-31] MEDS: ZOLPIDEM TARTRATE 5 MG TABLET PO PRN (22:17)
[2017-01-01] MEDS: diazePAM 5 MG TABLET PO PRN ×4 (01:35→19:56)
[2017-01-01] MEDS: diphenhydrAMINE HCL 50 MG CAPSULE PO PRN (01:35)
[2017-01-01] MEDS: NICOTINE 21 MG/24 HOURS TOPICAL PATCH TD SCH (10:17)
[2017-01-01] MEDS: METHADONE HCL 5 MG TABLET (FOR DETOX USE ONLY) PO SCH (10:17)
[2017-01-01] MEDS: PRENATAL VITAMINS W/ FOLIC ACID TABLET (FP) PO SCH (10:17)
[2017-01-01] MEDS: diazePAM 5 MG TABLET PO SCH ×2 (10:18→22:22)
--- NOTE | 2017-01-01 10:52 | PN ---
[facility] Progress Note (SOAP) Subjective: ANXIETY,SWEATS,"MY BODY HURTS". Objective: 01/01/17 10:51 Vital Signs Temperature 96.8 F L 01/01/17 09:58 Pulse Rate 70 01/01/17 09:58 Respiratory Rate 18 01/01/17 09:58 Blood Pressure 97/68 01/01/17 09:58 O2 Sat by Pulse Oximetry (%) Laboratory Last Values WBC 6.4 K/mm3 (4.0-10.0) 12/30/16 07:40 RBC 4.58 M/mm3 (4.00-5.60) 12/30/16 07:40 Hgb 14.1 GM/dL (11.7-16.9) 12/30/16 07:40 Hct 42.3 % (35.4-49) 12/30/16 07:40 MCV 92.5 fl (80-96) 12/30/16 07:40 MCH 30.7 pg (25.7-33.7) 12/30/16 07:40 MCHC 33.2 g/dl (32.0-35.9) 12/30/16 07:40 RDW 12.9 % (11.9-15.9) 12/30/16 07:40 Plt Count 285 K/MM3 (134-434) 12/30/16 07:40 MPV 8.5 fl (7.5-11.1) 12/30/16 07:40 Sodium 140 mmol/L (136-145) 12/30/16 07:40 Potassium 4.5 mmol/L (3.5-5.1) 12/30/16 07:40 Chloride 103 mmol/L (98-107) 12/30/16 07:40 Carbon Dioxide 30 mmol/L (21-32) 12/30/16 07:40 Anion Gap 7 (8-16) L 12/30/16 07:40 BUN 12 mg/dL (7-18) 12/30/16 07:40 Creatinine 0.8 mg/dL (0.7-1.3) 12/30/16 07:40 Creat Clearance w eGFR > 60 (>60) 12/30/16 07:40 Random Glucose 77 mg/dL (74-106) 12/30/16 07:40 Calcium 9.2 mg/dL (8.5-10.1) 12/30/16 07:40 Total Bilirubin 0.6 mg/dL (0.2-1.0) D 12/30/16 07:40 AST 13 U/L (15-37) L D 12/30/16 07:40 ALT 24 U/L (12-78) 12/30/16 07:40 Alkaline Phosphatase 68 U/L (45-117) 12/30/16 07:40 Total Protein 7.3 g/dl (6.4-8.2) 12/30/16 07:40 Albumin 3.8 g/dl (3.4-5.0) 12/30/16 07:40 Urine Color Yellow 12/29/16 15:37 Urine Appearance Slcloudy 12/29/16 15:37 Urine pH 5.0 (5.0-8.0) D 12/29/16 15:37 Ur Specific [place] 1.025 (1.005-1.025) 12/29/16 15:37 Urine Protein Negative (NEGATIVE) 12/29/16 15:37 Urine Glucose (UA) Negative (NEGATIVE) 12/29/16 15:37 Urine Ketones Negative (NEGATIVE) 12/29/16 15:37 Urine Blood Negative (NEGATIVE) 12/29/16 15:37 Urine Nitrite Negative (NEGATIVE) 12/29/16 15:37 Urine Bilirubin Negative (NEGATIVE) 12/29/16 15:37 Urine Urobilinogen Negative mg/dL (0.2-1.0) 12/29/16 15:37 Ur Leukocyte Esterase Negative (NEGATIVE) 12/29/16 15:37 RPR Titer Nonreactive (NONREACTIVE) 12/30/16 07:40 Assessment: 01/01/17 10:51 WITHDRAWAL SX Plan: CONTINUE DETOX
[2017-01-01] MEDS: IBUPROFEN 400 MG TABLET (FP) PO PRN (15:37)
[2017-01-01] MEDS ORDERED: chlordiazePOXIDE HCL 10 MG CAPSULE PO SCH (17:00)
[2017-01-01] MEDS: THIAMINE HCL 100 MG TABLET (FP) PO SCH (22:22)
[2017-01-01] MEDS: ZOLPIDEM TARTRATE 5 MG TABLET PO PRN (22:22)
[2017-01-02] MEDS: guaiFENesin/D-METHORPHAN HB 10 ML UNIT-DOSE CUPS PO PRN (01:29)
[2017-01-02] MEDS: diphenhydrAMINE HCL 50 MG CAPSULE PO PRN (01:29)
[2017-01-02] MEDS: diazePAM 5 MG TABLET PO PRN (06:18)
[2017-01-02] MEDS ORDERED: METHADONE HCL 10 MG TABLET (FOR DETOX USE ONLY) PO SCH (10:00)
[2017-01-02] MEDS: PRENATAL VITAMINS W/ FOLIC ACID TABLET (FP) PO SCH (10:27)
[2017-01-02] MEDS: diazePAM 5 MG TABLET PO SCH ×2 (10:28→22:24)
[2017-01-02] MEDS: NICOTINE 21 MG/24 HOURS TOPICAL PATCH TD SCH (10:28)
--- NOTE | 2017-01-02 10:51 | PN ---
[facility] Progress Note (SOAP) Subjective: FATIGUE,SLEEPY BUT AROUSABLE DURING ROUNDS. Objective: 01/02/17 10:50 Vital Signs Temperature 97.8 F 01/02/17 09:45 Pulse Rate 97 H 01/02/17 09:45 Respiratory Rate 18 01/02/17 09:45 Blood Pressure 121/80 01/02/17 09:45 O2 Sat by Pulse Oximetry (%) Laboratory Last Values WBC 6.4 K/mm3 (4.0-10.0) 12/30/16 07:40 RBC 4.58 M/mm3 (4.00-5.60) 12/30/16 07:40 Hgb 14.1 GM/dL (11.7-16.9) 12/30/16 07:40 Hct 42.3 % (35.4-49) 12/30/16 07:40 MCV 92.5 fl (80-96) 12/30/16 07:40 MCH 30.7 pg (25.7-33.7) 12/30/16 07:40 MCHC 33.2 g/dl (32.0-35.9) 12/30/16 07:40 RDW 12.9 % (11.9-15.9) 12/30/16 07:40 Plt Count 285 K/MM3 (134-434) 12/30/16 07:40 MPV 8.5 fl (7.5-11.1) 12/30/16 07:40 Sodium 140 mmol/L (136-145) 12/30/16 07:40 Potassium 4.5 mmol/L (3.5-5.1) 12/30/16 07:40 Chloride 103 mmol/L (98-107) 12/30/16 07:40 Carbon Dioxide 30 mmol/L (21-32) 12/30/16 07:40 Anion Gap 7 (8-16) L 12/30/16 07:40 BUN 12 mg/dL (7-18) 12/30/16 07:40 Creatinine 0.8 mg/dL (0.7-1.3) 12/30/16 07:40 Creat Clearance w eGFR > 60 (>60) 12/30/16 07:40 Random Glucose 77 mg/dL (74-106) 12/30/16 07:40 Calcium 9.2 mg/dL (8.5-10.1) 12/30/16 07:40 Total Bilirubin 0.6 mg/dL (0.2-1.0) D 12/30/16 07:40 AST 13 U/L (15-37) L D 12/30/16 07:40 ALT 24 U/L (12-78) 12/30/16 07:40 Alkaline Phosphatase 68 U/L (45-117) 12/30/16 07:40 Total Protein 7.3 g/dl (6.4-8.2) 12/30/16 07:40 Albumin 3.8 g/dl (3.4-5.0) 12/30/16 07:40 Urine Color Yellow 12/29/16 15:37 Urine Appearance Slcloudy 12/29/16 15:37 Urine pH 5.0 (5.0-8.0) D 12/29/16 15:37 Ur Specific [place] 1.025 (1.005-1.025) 12/29/16 15:37 Urine Protein Negative (NEGATIVE) 12/29/16 15:37 Urine Glucose (UA) Negative (NEGATIVE) 12/29/16 15:37 Urine Ketones Negative (NEGATIVE) 12/29/16 15:37 Urine Blood Negative (NEGATIVE) 12/29/16 15:37 Urine Nitrite Negative (NEGATIVE) 12/29/16 15:37 Urine Bilirubin Negative (NEGATIVE) 12/29/16 15:37 Urine Urobilinogen Negative mg/dL (0.2-1.0) 12/29/16 15:37 Ur Leukocyte Esterase Negative (NEGATIVE) 12/29/16 15:37 RPR Titer Nonreactive (NONREACTIVE) 12/30/16 07:40 Assessment: 01/02/17 10:51 WITHDRAWAL SX Plan: CONTINUE DETOX
[2017-01-02] MEDS: MAG HYDROX/AL HYDROX/SIMETH 30 ML UNIT-DOSE CUP PO PRN (14:33)
[2017-01-02] MEDS: RANITIDINE HCL 150 MG TABLET (FP) PO SCH (15:51)
[2017-01-02 22:20] VITALS: PULSE 89
[2017-01-02] MEDS: THIAMINE HCL 100 MG TABLET (FP) PO SCH (22:23)
[2017-01-02] MEDS: ZOLPIDEM TARTRATE 5 MG TABLET PO PRN (22:24)
[2017-01-03] MEDS: diphenhydrAMINE HCL 50 MG CAPSULE PO PRN (01:26)
[2017-01-03] MEDS ORDERED: METHADONE HCL 5 MG TABLET (FOR DETOX USE ONLY) PO SCH (06:00)
[2017-01-03 06:25] VITALS: BP 120/90; TEMP 97.9
--- NOTE | 2017-01-03 08:26 | DS ---
[facility] Detox Discharge Summary Admission Date: 12/29/16 Discharge Date: 01/03/17 - History Present History: Alcohol Dependence, Opioid Dependence, Sedative Dependence Additional Comments: DETOX COMPLETED. ALERT O X 3. NAD. Pertinent Past History: GERD CHRONIC BACK PAIN DUE TO INJURY - Physical Exam Results Vital Signs: Vital Signs Temperature 97.9 F 01/03/17 06:24 Pulse Rate 89 01/03/17 06:24 Respiratory Rate 18 01/03/17 06:24 Blood Pressure 120/90 01/03/17 06:24 O2 Sat by Pulse Oximetry (%) Pertinent Admission Physical Exam Findings: WITHDRAWAL SX Laboratory Last Values WBC 6.4 K/mm3 (4.0-10.0) 12/30/16 07:40 RBC 4.58 M/mm3 (4.00-5.60) 12/30/16 07:40 Hgb 14.1 GM/dL (11.7-16.9) 12/30/16 07:40 Hct 42.3 % (35.4-49) 12/30/16 07:40 MCV 92.5 fl (80-96) 12/30/16 07:40 MCH 30.7 pg (25.7-33.7) 12/30/16 07:40 MCHC 33.2 g/dl (32.0-35.9) 12/30/16 07:40 RDW 12.9 % (11.9-15.9) 12/30/16 07:40 Plt Count 285 K/MM3 (134-434) 12/30/16 07:40 MPV 8.5 fl (7.5-11.1) 12/30/16 07:40 Sodium 140 mmol/L (136-145) 12/30/16 07:40 Potassium 4.5 mmol/L (3.5-5.1) 12/30/16 07:40 Chloride 103 mmol/L (98-107) 12/30/16 07:40 Carbon Dioxide 30 mmol/L (21-32) 12/30/16 07:40 Anion Gap 7 (8-16) L 12/30/16 07:40 BUN 12 mg/dL (7-18) 12/30/16 07:40 Creatinine 0.8 mg/dL (0.7-1.3) 12/30/16 07:40 Creat Clearance w eGFR > 60 (>60) 12/30/16 07:40 Random Glucose 77 mg/dL (74-106) 12/30/16 07:40 Calcium 9.2 mg/dL (8.5-10.1) 12/30/16 07:40 Total Bilirubin 0.6 mg/dL (0.2-1.0) D 12/30/16 07:40 AST 13 U/L (15-37) L D 12/30/16 07:40 ALT 24 U/L (12-78) 12/30/16 07:40 Alkaline Phosphatase 68 U/L (45-117) 12/30/16 07:40 Total Protein 7.3 g/dl (6.4-8.2) 12/30/16 07:40 Albumin 3.8 g/dl (3.4-5.0) 12/30/16 07:40 Urine Color Yellow 12/29/16 15:37 Urine Appearance Slcloudy 12/29/16 15:37 Urine pH 5.0 (5.0-8.0) D 12/29/16 15:37 Ur Specific [place] 1.025 (1.005-1.025) 12/29/16 15:37 Urine Protein Negative (NEGATIVE) 12/29/16 15:37 Urine Glucose (UA) Negative (NEGATIVE) 12/29/16 15:37 Urine Ketones Negative (NEGATIVE) 12/29/16 15:37 Urine Blood Negative (NEGATIVE) 12/29/16 15:37 Urine Nitrite Negative (NEGATIVE) 12/29/16 15:37 Urine Bilirubin Negative (NEGATIVE) 12/29/16 15:37 Urine Urobilinogen Negative mg/dL (0.2-1.0) 12/29/16 15:37 Ur Leukocyte Esterase Negative (NEGATIVE) 12/29/16 15:37 RPR Titer Nonreactive (NONREACTIVE) 12/30/16 07:40 - Treatment Hospital Course: Detox Protocol Followed, Detoxed Safely, Responded well, Discharged Condition Good - Medication Discharge Medications: Ambulatory Orders Ranitidine HCl [Zantac] 150 mg PO DAILY 01/02/17 - Diagnosis (1) Alcohol dependence with uncomplicated withdrawal Status: Acute (2) Back pain due to injury Status: Chronic (3) Nicotine dependence Status: Acute Qualifiers: Nicotine product type: cigarettes Substance use status: in withdrawal Qualified Code(s): F17.213 - Nicotine dependence, cigarettes, with withdrawal; F17.213 - Nicotine dependence, cigarettes, with withdrawal (4) Opioid dependence with withdrawal Status: Acute (5) Uncomplicated sedative, hypnotic, or anxiolytic withdrawal Status: Acute (6) GERD (gastroesophageal reflux disease) Status: Chronic Qualifiers: Esophagitis presence: esophagitis presence not specified Qualified Code(s): K21.9 - Gastro-esophageal reflux disease without esophagitis; K21.9 - Gastro-esophageal reflux disease without esophagitis; K21.9 - Gastro-esophageal reflux disease without esophagitis - AMA Did Patient Leave Against Medical Advice: No
[2017-01-03] MEDS: PRENATAL VITAMINS W/ FOLIC ACID TABLET (FP) PO SCH (09:49)
[2017-01-03] MEDS: RANITIDINE HCL 150 MG TABLET (FP) PO SCH (09:49)
[2017-01-03] MEDS: IBUPROFEN 400 MG TABLET (FP) PO PRN (09:50)
[2017-01-03] MEDS ORDERED: diazePAM 5 MG TABLET PO SCH (10:00)
== END 2017-01-03 10:54 | disposition home or self-care (01) | DRG 773 ==
LOC: YASAS 11:45 → Y3N 14:58
PROVIDERS: ADMIT Internal Medicine; ATTEND Internal Medicine
PROC: HZ2ZZZZ Detoxification Services for Substance Abuse Treatment (ICD-10-PCS; principal; 2016-12-29)
DX: F11.23 Opioid dependence with withdrawal (principal); F13.230 Sedative, hypnotic or anxiolytic dependence with withdrawal, uncomplicated; F10.230 Alcohol dependence with withdrawal, uncomplicated; F17.213 Nicotine dependence, cigarettes, with withdrawal; F19.24 Other psychoactive substance dependence with psychoactive substance-induced mood disorder; F31.9 Bipolar disorder, unspecified; K21.9 Gastro-esophageal reflux disease without esophagitis; M54.9 Dorsalgia, unspecified
CPT/HCPCS: 36415; 80053; 81003; 85027; 86593; 93005; 93010

== ENCOUNTER 2018-11-14 11:35 | Inpatient (IN) | payer OTHER ==
[2018-11-14] MEDS ORDERED: MAG HYDROX/AL HYDROX/SIMETH 30 ML UNIT-DOSE CUP PO PRN (12:58)
[2018-11-14] MEDS ORDERED: MAGNESIUM HYDROX 2400MG/30ML ORAL SUSPENSION 30 ML CUP PO PRN (12:58)
[2018-11-14] MEDS ORDERED: LOPERAMIDE HCL 2 MG CAPSULE PO PRN (12:58)
[2018-11-14] MEDS ORDERED: MENTHOL/PHENOL 1 EACH UD MM PRN (12:58)
[2018-11-14] MEDS ORDERED: MAGNESIUM CITRATE 300 ML BOTTLE PO PRN (12:58)
[2018-11-14] MEDS ORDERED: guaiFENesin 200 MG/10 ML 10 ML UNIT-DOSE CUPS PO PRN (12:58)
[2018-11-14] MEDS ORDERED: P-EPHED 60MG/TRIPROLIDI 2.5MG TABLET PO PRN (12:58)
[2018-11-14] MEDS ORDERED: BACLOFEN 10 MG TABLET (FP) PO PRN (12:59)
--- NOTE | 2018-11-14 13:01 | HP ---
[facility] Rehab Assess/Revision - Admission History Admitted to Rehab from: [facility] Date of Admission to Rehab: 11/14/2018 - Vital signs Vital Signs: NOTED; STABLE. - Findings Detox History & Physical reviewed: Yes Concur with findings: Yes Comments/Additional Findings: PATIENT'S MEDICAL / MEDICATION HISTORY REVIEWED PRIOR TO DISCHARGE FROM DETOX UNIT. PATIENT WAS DISCHARGED FROM DETOX UNIT TO BE TAKEN OVER TO REHAB UNIT IN STABLE MEDICAL CONDITION. Inpatient Rehab Admission - Rehab Decision to Admit Inpatient rehab admission?: Yes - Initial Determination Are CD services needed?: Yes Free of communicable disease: Yes Not in need of hospitalization: Yes - Rehab Admission Criteria Previous failed treatment: Yes Poor recovery environment: Yes Comorbidities: Yes Lacks judgement: No Patient is meeting Inpatient Rehab admission criteria:: Yes
[2018-11-14] MEDS: hydrOXYzine PAMOATE 25 MG CAPSULE (FP) PO PRN ×2 (14:25→21:38)
[2018-11-14] MEDS: cloNIDine HCL 0.1 MG TABLET PO PRN (16:45)
[2018-11-14] MEDS: THIAMINE HCL 100 MG TABLET (FP) PO SCH (21:38)
[2018-11-14] MEDS: QUEtiapine FUMARATE 100 MG TABLET (FP) PO SCH (21:38)
[2018-11-14] MEDS: MELATONIN 5 MG TABLETS PO PRN (23:33)
[2018-11-15] MEDS: cloNIDine HCL 0.1 MG TABLET PO PRN ×3 (00:46→21:34)
[2018-11-15] MEDS: RANITIDINE HCL 150 MG TABLET (FP) PO SCH (10:02)
[2018-11-15] MEDS: PRENATAL VITAMINS W/ FOLIC ACID TABLET (FP) PO SCH (10:02)
[2018-11-15] MEDS: hydrOXYzine PAMOATE 25 MG CAPSULE (FP) PO PRN (19:16)
[2018-11-15] MEDS: QUEtiapine FUMARATE 100 MG TABLET (FP) PO SCH (21:34)
[2018-11-15] MEDS: THIAMINE HCL 100 MG TABLET (FP) PO SCH (21:34)
[2018-11-16] MEDS: hydrOXYzine PAMOATE 25 MG CAPSULE (FP) PO PRN ×2 (09:49→17:46)
[2018-11-16] MEDS: cloNIDine HCL 0.1 MG TABLET PO PRN ×2 (09:49→21:19)
[2018-11-16] MEDS: PRENATAL VITAMINS W/ FOLIC ACID TABLET (FP) PO SCH (09:50)
[2018-11-16] MEDS: RANITIDINE HCL 150 MG TABLET (FP) PO SCH (09:50)
[2018-11-16] MEDS: MELATONIN 5 MG TABLETS PO PRN (21:19)
[2018-11-16] MEDS: THIAMINE HCL 100 MG TABLET (FP) PO SCH (21:19)
[2018-11-16] MEDS: QUEtiapine FUMARATE 100 MG TABLET (FP) PO SCH (21:19)
[2018-11-16] MEDS: IBUPROFEN 400 MG TABLET (FP) PO PRN (21:20)
[2018-11-17] MEDS: PRENATAL VITAMINS W/ FOLIC ACID TABLET (FP) PO SCH (09:57)
[2018-11-17] MEDS: hydrOXYzine PAMOATE 25 MG CAPSULE (FP) PO PRN ×2 (09:58→16:59)
[2018-11-17] MEDS: cloNIDine HCL 0.1 MG TABLET PO PRN ×2 (09:58→21:20)
[2018-11-17] MEDS: RANITIDINE HCL 150 MG TABLET (FP) PO SCH (13:31)
[2018-11-17] MEDS ORDERED: COLLOIDAL OATMEAL 1 BAR EACH TP PRN (15:49)
[2018-11-17] MEDS: IBUPROFEN 400 MG TABLET (FP) PO PRN (16:58)
[2018-11-17] MEDS: THIAMINE HCL 100 MG TABLET (FP) PO SCH (21:19)
[2018-11-17] MEDS: QUEtiapine FUMARATE 100 MG TABLET (FP) PO SCH (21:19)
[2018-11-18] MEDS: PRENATAL VITAMINS W/ FOLIC ACID TABLET (FP) PO SCH (09:35)
[2018-11-18] MEDS: RANITIDINE HCL 150 MG TABLET (FP) PO SCH (09:35)
[2018-11-18] MEDS: cloNIDine HCL 0.1 MG TABLET PO PRN ×2 (09:36→21:41)
[2018-11-18] MEDS: hydrOXYzine PAMOATE 25 MG CAPSULE (FP) PO PRN ×2 (09:36→16:55)
[2018-11-18] MEDS: IBUPROFEN 400 MG TABLET (FP) PO PRN ×2 (09:36→21:33)
[2018-11-18] MEDS: ACETAMINOPHEN 325 MG TABLET (FP) PO PRN (16:56)
[2018-11-18] MEDS: QUEtiapine FUMARATE 100 MG TABLET (FP) PO SCH (21:34)
[2018-11-18] MEDS: THIAMINE HCL 100 MG TABLET (FP) PO SCH (21:34)
[2018-11-19] MEDS: IBUPROFEN 400 MG TABLET (FP) PO PRN (09:42)
[2018-11-19] MEDS: RANITIDINE HCL 150 MG TABLET (FP) PO SCH (09:42)
[2018-11-19] MEDS: hydrOXYzine PAMOATE 25 MG CAPSULE (FP) PO PRN ×2 (09:42→14:59)
[2018-11-19] MEDS: PRENATAL VITAMINS W/ FOLIC ACID TABLET (FP) PO SCH (09:43)
[2018-11-19] MEDS: cloNIDine HCL 0.1 MG TABLET PO PRN ×2 (09:43→21:07)
[2018-11-19] MEDS: ACETAMINOPHEN 325 MG TABLET (FP) PO PRN (14:59)
[2018-11-19] MEDS: THIAMINE HCL 100 MG TABLET (FP) PO SCH (21:07)
[2018-11-19] MEDS: QUEtiapine FUMARATE 100 MG TABLET (FP) PO SCH (21:07)
[2018-11-20] MEDS: IBUPROFEN 400 MG TABLET (FP) PO PRN ×2 (10:23→21:41)
[2018-11-20] MEDS: hydrOXYzine PAMOATE 25 MG CAPSULE (FP) PO PRN ×2 (10:23→18:08)
[2018-11-20] MEDS: PRENATAL VITAMINS W/ FOLIC ACID TABLET (FP) PO SCH (10:23)
[2018-11-20] MEDS: cloNIDine HCL 0.1 MG TABLET PO PRN ×2 (10:23→21:41)
[2018-11-20] MEDS: RANITIDINE HCL 150 MG TABLET (FP) PO SCH (10:23)
[2018-11-20] MEDS: QUEtiapine FUMARATE 100 MG TABLET (FP) PO SCH (21:40)
[2018-11-20] MEDS: THIAMINE HCL 100 MG TABLET (FP) PO SCH (21:40)
[2018-11-20] MEDS: MELATONIN 5 MG TABLETS PO PRN (21:41)
[2018-11-21] MEDS: PRENATAL VITAMINS W/ FOLIC ACID TABLET (FP) PO SCH (09:57)
[2018-11-21] MEDS: cloNIDine HCL 0.1 MG TABLET PO PRN ×2 (09:57→21:11)
[2018-11-21] MEDS: hydrOXYzine PAMOATE 25 MG CAPSULE (FP) PO PRN ×2 (09:57→21:12)
[2018-11-21] MEDS: RANITIDINE HCL 150 MG TABLET (FP) PO SCH (09:57)
[2018-11-21] MEDS: IBUPROFEN 400 MG TABLET (FP) PO PRN ×2 (09:58→21:12)
[2018-11-21] MEDS: ACETAMINOPHEN 325 MG TABLET (FP) PO PRN (15:00)
[2018-11-21] MEDS: THIAMINE HCL 100 MG TABLET (FP) PO SCH (21:11)
[2018-11-21] MEDS: QUEtiapine FUMARATE 100 MG TABLET (FP) PO SCH (21:11)
[2018-11-22] MEDS: IBUPROFEN 400 MG TABLET (FP) PO PRN (05:58)
[2018-11-22] MEDS: PRENATAL VITAMINS W/ FOLIC ACID TABLET (FP) PO SCH (09:54)
[2018-11-22] MEDS: RANITIDINE HCL 150 MG TABLET (FP) PO SCH (09:54)
[2018-11-22] MEDS: ACETAMINOPHEN 325 MG TABLET (FP) PO PRN (09:54)
[2018-11-22] MEDS: hydrOXYzine PAMOATE 25 MG CAPSULE (FP) PO PRN ×2 (09:54→21:32)
[2018-11-22] MEDS: cloNIDine HCL 0.1 MG TABLET PO PRN ×2 (09:54→21:32)
--- NOTE | 2018-11-22 12:38 | PN ---
Psychiatric Progress Note Vital Signs: Vital Signs Period Temp Pulse Resp BP Sys/Fischer Pulse Ox Last 24 Hr 98 F 74 18-18 118-129/78-86 Date of Session: 11/22/18 Chief Complaint:: " I feel fine." Current Medications: Active Medications Generic Name Dose Route Start Last Admin Trade Name Freq PRN Reason Stop Dose Admin Acetaminophen 650 mg 11/14/18 12:58 11/22/18 09:54 Tylenol - PO 650 mg Q4H PRN Administration FEVER Al Hydroxide/Mg Hydroxide 30 ml 11/14/18 12:58 Mylanta Oral Suspension - PO Q6H PRN DYSPEPSIA Clonidine 0.1 mg 11/14/18 15:33 11/22/18 09:54 Catapres - PO 0.1 mg BID PRN Administration ANXIETY Colloidal Oatmeal 1 applic 11/17/18 15:49 11/17/18 16:59 Aveeno Soap - TP 1 applic DAILY PRN Administration HYGEINE Eucalyptus/Menthol/Phenol/Sorbitol 1 each 11/14/18 12:58 Cepastat Lozenge - MM Q4H PRN SORE THROAT Guaifenesin 10 ml 11/14/18 12:58 Robitussin - PO Q6H PRN COUGH Hydroxyzine Pamoate 25 mg 11/14/18 12:52 11/22/18 09:54 Vistaril - PO 25 mg Q6H PRN Administration ANXIETY Ibuprofen 400 mg 11/14/18 12:58 11/22/18 05:58 Motrin - PO 400 mg Q6H PRN Administration Pain Level 4-6 Loperamide HCl 4 mg 11/14/18 12:58 Imodium - PO Q6H PRN DIARRHEA Magnesium Citrate 300 ml 11/14/18 12:58 Citroma - PO Q48H PRN CONSTIPATION Magnesium Hydroxide 30 ml 11/14/18 12:58 Milk Of Magnesia - PO DAILY PRN CONSTIPATION Melatonin 5 mg 11/14/18 12:52 11/20/18 21:41 Melatonin PO 5 mg HS PRN Administration INSOMNIA Multivit/Folic Acid/Iron 1 tab 11/15/18 10:00 11/22/18 09:54 Vitamins (Sjr) - PO 1 tab DAILY CRUZ Administration Pseudoephedrine/Triprolidine 1 combo 11/14/18 12:58 Actifed - PO TID PRN NASAL CONGESTION Quetiapine Fumarate 100 mg 11/14/18 22:00 11/21/18 21:11 Seroquel - PO 100 mg HS CRUZ Administration Ranitidine HCl 150 mg 11/15/18 10:00 11/22/18 09:54 Zantac - PO 150 mg DAILY CRUZ Administration Thiamine HCl 100 mg 11/14/18 22:00 11/21/18 21:11 Vitamin B1 - PO 100 mg HS CRUZ Administration
--- NOTE | 2018-11-22 16:06 | CONSULT ---
[facility] Psychiatric Consult - Data Date of interview: 11/22/18 Admission source: Transfer from [address] [place] [address]. Identifying data: Admission to [address] for this 28 y/o male who completed detoxification (alcohol, opioid) on [address] [place] [address] and enlisted in rehabilitative care for consolidation of sobriety + management of co- morbidities (substance induced mood disorder, ADHD, bipolar disorder). Patient is single without children, domiciled, unemployed and supported on odd jobs. Substance Abuse History: Re-discussed with the patient. Details in current [facility] report as follows : Smoking history: Former smoker. Have you smoked in the past 12 months: No. Hx Chewing Tobacco Use: No. Initiated information on smoking cessation: No. - Substance & Tx. History. Hx Alcohol Use: Yes. Hx Substance Use: Yes. Substance Use Type: Marijuana, Opiates. Hx Substance Use Treatment: Yes ([facility] - Substances abused. Other. Other (specify): Percocet. Substance route: Oral. Frequency: Daily. Amount used: 900 mg. Age of first use: 22. Date of last use: 11/07/18. Alcohol. Substance route: Oral. Frequency: 3-6 times per week. Amount used: 6 packs of beer. Age of first use: 20. Date of last use: 11/08/18. Marijuana/Hashish. Substance route: Smoking. Frequency: Daily. Amount used: ' a lot'. Age of first use: 24 Medical History: Significant for a history of herniated disks and lower back pain. Psychiatric History: No changes since encounter of 11/10/[address] [place] [address]. Psychiatric history remains remarkable for onset of emotional disturbances occurred during childhood. Diagnosed with ADHD (age 11) and medicated with psychostimulant (methylphenidate). Diagnosis was revised, at age 19, to Bipolar Disorder (treated with aripriprazole). Patient admits to a history of two psychiatric hospitalizations ([facility] + [facility]). Mr Simpson has been treated, in the past, with various drugs which include depakote, seroquel, lithium, bupropion and others (names not recalled). Patient has stopped seeing Dr Morgan, his private psychiatrist in [facility] (2016). Admits to chronic non-adherence to medications and OPD care. No contact with mental health care providers since 2016. History of a suicide attempt via hanging in 2015 (reason of admission at [facility]). Physical/Sexual Abuse/Trauma History: Patient denies history of abuse. Additional Comment: Urine drug screen results: THC-Marijuana, OXY-Oxycodone. Noted on admission. Mental Status Exam - Mental Status Exam Alert and Oriented to: Time, Place, Person Cognitive Function: Good Patient Appearance: Well Groomed Mood: Hopeful, Euthymic Affect: Appropriate, Normal Range Patient Behavior: Appropriate, Cooperative Speech Pattern: Clear, Appropriate Voice Loudness: Normal Thought Process: Intact, Goal Oriented Thought Disorder: Not Present Hallucinations: Denies Suicidal Ideation: Denies Homicidal Ideation: Denies Insight/Judgement: Fair Sleep: Well Appetite: Good Muscle strength/Tone: Normal Gait/Station: Normal Psychiatric Findings - Problem List ([place] 1, 2,3) (1) Alcohol use disorder Current Visit: Yes Status: Chronic (2) Opioid use disorder Current Visit: Yes Status: Acute (3) Cannabis dependence Current Visit: Yes Status: Chronic Comment: By history. (4) Nicotine dependence Current Visit: Yes Status: Chronic Qualifiers: Nicotine product type: cigarettes Substance use status: in withdrawal Qualified Code(s): F17.213 - Nicotine dependence, cigarettes, with withdrawal (5) Substance induced mood disorder Current Visit: Yes Status: Chronic (6) Bipolar disorder Current Visit: Yes Status: Chronic Qualifiers: Active/Remission status: remission status unspecified Qualified Code(s): F31.9 - Bipolar disorder, unspecified Comment: By history. (7) ADHD (attention deficit hyperactivity disorder) Current Visit: Yes Status: Chronic Qualifiers: Attention deficit-hyperactivity disorder type: unspecified Qualified Code(s ): F90.9 - Attention-deficit hyperactivity disorder, unspecified type - Initial Treatment Plan Initial Treatment Plan: No lethargy observed during this examination. Patient reports adequate response to quetiapine. Sleeps well. Denies experiencing any side effects. Will continue seroquel at 100 mg po hs. Motivational counseling. AA/NA meetings. Support. Observation.
[2018-11-22] MEDS: QUEtiapine FUMARATE 100 MG TABLET (FP) PO SCH (21:30)
[2018-11-22] MEDS: THIAMINE HCL 100 MG TABLET (FP) PO SCH (21:30)
[2018-11-23] MEDS: IBUPROFEN 400 MG TABLET (FP) PO PRN (07:42)
[2018-11-23] MEDS: RANITIDINE HCL 150 MG TABLET (FP) PO SCH (10:25)
[2018-11-23] MEDS: hydrOXYzine PAMOATE 25 MG CAPSULE (FP) PO PRN ×2 (10:25→21:20)
[2018-11-23] MEDS: cloNIDine HCL 0.1 MG TABLET PO PRN ×2 (10:25→21:20)
[2018-11-23] MEDS: PRENATAL VITAMINS W/ FOLIC ACID TABLET (FP) PO SCH (10:25)
[2018-11-23] MEDS: QUEtiapine FUMARATE 100 MG TABLET (FP) PO SCH (21:18)
[2018-11-23] MEDS: THIAMINE HCL 100 MG TABLET (FP) PO SCH (21:18)
[2018-11-24] MEDS: IBUPROFEN 400 MG TABLET (FP) PO PRN (06:43)
[2018-11-24] MEDS: PRENATAL VITAMINS W/ FOLIC ACID TABLET (FP) PO SCH (09:52)
[2018-11-24] MEDS: hydrOXYzine PAMOATE 25 MG CAPSULE (FP) PO PRN ×2 (09:52→21:12)
[2018-11-24] MEDS: cloNIDine HCL 0.1 MG TABLET PO PRN ×2 (09:52→21:12)
[2018-11-24] MEDS: RANITIDINE HCL 150 MG TABLET (FP) PO SCH (09:52)
[2018-11-24] MEDS: QUEtiapine FUMARATE 100 MG TABLET (FP) PO SCH (21:12)
[2018-11-24] MEDS: THIAMINE HCL 100 MG TABLET (FP) PO SCH (21:12)
[2018-11-25] MEDS: PRENATAL VITAMINS W/ FOLIC ACID TABLET (FP) PO SCH (09:37)
[2018-11-25] MEDS: hydrOXYzine PAMOATE 25 MG CAPSULE (FP) PO PRN ×2 (09:37→21:30)
[2018-11-25] MEDS: IBUPROFEN 600 MG TABLET (FP) PO PRN (09:38)
[2018-11-25] MEDS: RANITIDINE HCL 150 MG TABLET (FP) PO SCH (09:38)
[2018-11-25] MEDS: ACETAMINOPHEN 325 MG TABLET (FP) PO PRN (12:18)
[2018-11-25] MEDS: QUEtiapine FUMARATE 100 MG TABLET (FP) PO SCH (21:29)
[2018-11-25] MEDS: THIAMINE HCL 100 MG TABLET (FP) PO SCH (21:29)
[2018-11-25] MEDS: cloNIDine HCL 0.1 MG TABLET PO PRN (21:30)
[2018-11-26] MEDS: IBUPROFEN 600 MG TABLET (FP) PO PRN ×2 (06:31→14:05)
[2018-11-26] MEDS: cloNIDine HCL 0.1 MG TABLET PO PRN ×2 (10:12→21:34)
[2018-11-26] MEDS: hydrOXYzine PAMOATE 25 MG CAPSULE (FP) PO PRN ×2 (10:12→21:34)
[2018-11-26] MEDS: PRENATAL VITAMINS W/ FOLIC ACID TABLET (FP) PO SCH (10:34)
[2018-11-26] MEDS: RANITIDINE HCL 150 MG TABLET (FP) PO SCH (10:36)
--- NOTE | 2018-11-26 14:16 | PN ---
[facility] Progress Note (SOAP) Subjective: Patient c/o pain in left hand. History of injury playing basket ball in July. Was seen at [facility] ER, treated, referred for physical therapy but did not fall up. Objective: PE; No apparent distress Skin: Left hand with palmar and lateral swelling. MSK: unable to close hand completely and make a fist. 11/26/18 14:13 Vital Signs (72 hours) 11/23/18 11/24/18 11/24/18 22:29 00:30 03:30 Temperature Pulse Rate 89 Respiratory 18 18 Rate Blood Pressure 128/75 11/24/18 11/24/18 11/24/18 06:32 09:30 20:47 Temperature 97.5 F L Pulse Rate 71 83 80 Respiratory 17 18 18 Rate Blood Pressure 136/83 135/83 143/74 11/25/18 11/25/18 11/25/18 00:30 03:30 06:30 Temperature 98.2 F Pulse Rate 69 Respiratory 18 18 18 Rate Blood Pressure 111/81 11/25/18 11/25/18 11/26/18 09:30 20:46 00:30 Temperature Pulse Rate 89 95 H Respiratory 18 18 18 Rate Blood Pressure 138/89 135/94 11/26/18 11/26/18 11/26/18 03:30 06:36 09:30 Temperature 98.1 F Pulse Rate 86 99 H Respiratory 18 18 18 Rate Blood Pressure 140/84 130/77 Assessment: s/p left hand injury 11/26/18 14:16 Plan: Advised patient to make an appointment with his PCP upon discharge for another evaluation and referral to PT.Encouraged patient to take pain medication as needed.
[2018-11-26] MEDS: THIAMINE HCL 100 MG TABLET (FP) PO SCH (21:34)
[2018-11-26] MEDS: QUEtiapine FUMARATE 100 MG TABLET (FP) PO SCH (21:34)
[2018-11-27] MEDS: IBUPROFEN 600 MG TABLET (FP) PO PRN ×2 (05:45→15:01)
[2018-11-27] MEDS: RANITIDINE HCL 150 MG TABLET (FP) PO SCH (10:07)
[2018-11-27] MEDS: cloNIDine HCL 0.1 MG TABLET PO PRN ×2 (10:07→21:13)
[2018-11-27] MEDS: hydrOXYzine PAMOATE 25 MG CAPSULE (FP) PO PRN ×2 (10:07→21:13)
[2018-11-27] MEDS: PRENATAL VITAMINS W/ FOLIC ACID TABLET (FP) PO SCH (10:07)
--- NOTE | 2018-11-27 10:54 | DS ---
[facility] Rehab Discharge Summary - [facility] Rehab Discharge Summary Admission Date: 11/14/18 Discharge Date: 11/27/18 - History Present History: Alcohol dependence, Cannabis dependence, Opioid dependence Pertinent Past History: 28 years old male with eight years of opioid and alcohol dependence. Patient reports that the last time he was in detox was 2 years ago here and reports 2 years of sobriety. He reports medical history of GERD and psychiatric history of depression, anxiety and bipolar disorder. Denies suicide attempt and suicidal ideation at this time. Had previous injury to left hand that required surgical intervention, but he did not f/u with PT and he continues to experience pain in that hand. - Discharge Physical Exam Vital Signs: Vital Signs Temperature 98.2 F 11/27/18 06:41 Pulse Rate 80 11/27/18 06:41 Respiratory Rate 18 11/27/18 06:41 Blood Pressure 110/85 11/27/18 06:41 O2 Sat by Pulse Oximetry (%) Pertinent Admission Physical Exam Findings: - Physical General Appearance: No apparent distress HEENTM: Normocephalic; PERRLA Respiratory: Lungs Clear, Neck: Supple Cardiology: S1 S2 Abdominal: +BS, soft, flat, non-tender Musculoskeletal: full weight bearing, full ROM, staedy gait Neurological: CN 2-12 intact Integumentary: skin color consistent throughout trunk and extremities, good skin turgor, some swelling chronic left hand - Treatment Discharge Condition: Outpatient referral accepted (Patient accepted referral to [facility] OPT program in [place]) Hospital Course: patient attended groups, had 1:1 meeting with counselor, was seen by psychiatric provider, was adherent to treatment plan and medication regimen. Had no significant medical problems during rehab. - Medication-Assisted Treatment (MAT) Medication-Assisted Treatment (MAT): No - Discharge Instructions Diet, activity, other medical instructions: Diet: as tolerated Activity: as tolerated Other medical instructions:Please keep aftercare appointment. Please make an appointment with PCP within 2 weeks of discharge. - Diagnosis (1) Opioid use disorder Current Visit: Yes Status: Chronic (2) Alcohol use disorder Current Visit: Yes Status: Chronic (3) Cannabis dependence Current Visit: Yes Status: Chronic - Follow-up Referral Minutes to complete discharge: 20 - AMA Did Patient Leave Against Medical Advice: No
--- NOTE | 2018-11-27 14:38 | PN ---
[facility] Progress Note Note: Patient is scheduled for discharge tomorrow. Script for 30 days supply of Seroquel 100 mg/hs will be electronically transmitted to [facility] at [address] [place] [id number]
[2018-11-27] MEDS: THIAMINE HCL 100 MG TABLET (FP) PO SCH (21:12)
[2018-11-27] MEDS: MELATONIN 5 MG TABLETS PO PRN (21:12)
[2018-11-27] MEDS: QUEtiapine FUMARATE 100 MG TABLET (FP) PO SCH (21:12)
[2018-11-28] MEDS: IBUPROFEN 600 MG TABLET (FP) PO PRN (06:21)
[2018-11-28 06:41] VITALS: BP 109/80; PULSE 94; TEMP 98.1
== END 2018-11-28 10:15 | disposition home or self-care (01) | DRG 772 ==
LOC: YASAS 11:35 → Y3W 11:36
PROVIDERS: ADMIT Neuromusculoskeletal Medicine & OMM; ATTEND Neuromusculoskeletal Medicine & OMM
PROC: HZ42ZZZ Group Counseling for Substance Abuse Treatment, Cognitive-Behavioral (ICD-10-PCS; principal; 2018-11-14)
DX: F10.20 Alcohol dependence, uncomplicated (principal); F11.20 Opioid dependence, uncomplicated; F12.20 Cannabis dependence, uncomplicated; F17.210 Nicotine dependence, cigarettes, uncomplicated; F19.24 Other psychoactive substance dependence with psychoactive substance-induced mood disorder; F31.9 Bipolar disorder, unspecified; F90.9 Attention-deficit hyperactivity disorder, unspecified type
CPT/HCPCS: J0475; J0735